=== PATIENT | female | born 1980 | race Caucasian/White ===

== ENCOUNTER → 2016-08-03 | Outpatient (CLI) | payer BC | LOC: FIMAGING 08:13 | PROVIDERS: ATTEND Obstetrics & Gynecology | DX: O09.523 Supervision of elderly multigravida, third trimester (principal); O36.63X0 Maternal care for excessive fetal growth, third trimester, not applicable or unspecified; O28.3 Abnormal ultrasonic finding on antenatal screening of mother; Z3A.29 29 weeks gestation of pregnancy ==

== ENCOUNTER 2016-10-01 02:36 | Inpatient (IN) | payer BC ==
[2016-10-01] MEDS ORDERED: OLIVE OIL 118 ML BTL MISC PRN (02:44)
[2016-10-01] MEDS ORDERED: LR 1,000 ML IV PRN (02:44)
[2016-10-01] MEDS ORDERED: OXYTOCIN/RINGERS LACTATE 1,000 ML IV PRN (02:44)
[2016-10-01] MEDS ORDERED: EPSOM SALT 454 GM TP PRN (02:44)
[2016-10-01] MEDS ORDERED: TERBUTALINE SULFATE 1 MG/ML VIAL IV PRN (02:44)
[2016-10-01] MEDS ORDERED: AMPICILLIN SODIUM 2 GM in NS 100 ML IV ONE (02:44)
[2016-10-01] MEDS ORDERED: TERBUTALINE SULFATE 1 MG/ML VIAL ONE (02:48)
[2016-10-01] MEDS ORDERED: OXYTOCIN 10 UNIT/ML VIAL ONE (02:48)
[2016-10-01] MEDS ORDERED: OLIVE OIL 118 ML BTL ONE (02:48)
[2016-10-01] MEDS ORDERED: LIDOCAINE 1% 300 MG/30 ML SDV ONE (02:48)
[2016-10-01] MEDS ORDERED: AMMONIA AROMATIC 1 EACH AMP IH ONE (02:48)
[2016-10-01] MEDS ORDERED: MISOPROSTOL 200 MCG TAB ONE (02:49)
[2016-10-01 03:10] LABS: % IMMATURE GRANULYOCYTES 0.6 % (0.0-1.1); ABSOLUTE IMMATURE GRANULOCYTES 0.09 10^3/uL (0.00-0.10); ADD DIFF? NO; ADD MORPH? NO; ADD SCAN? NO; ATYPICAL LYMPHOCYTE FLAG 10 (0-99); FRAGMENT RBC FLAG 0 (0-99); LEFT SHIFT FLG 0 (0-99); LIPEMIA HEMOLYSIS FLAG 90 (0-99); MEAN CELL HEMOGLOBIN 32.8 pg (27.9-34.1); MEAN CELL HEMOGLOBIN CONCENTR. 36.1 g/dL (32.4-36.7); MEAN CELL VOLUME 90.9 fL (81.5-99.8); MEAN PLATELET VOLUME 9.7 fL (8.7-11.7); PLATELET CLUMPS FLAG 20 (0-99); PLATELET COUNT 256 10^3/uL (150-400); RED BLOOD CELL COUNT 3.96 10^6/uL (4.18-5.33); RED CELL DISTRIBUTION WIDTH 13.3 % (11.5-15.2)
[2016-10-01] MEDS ORDERED: fentaNYL 2MCG/ML/BUP 0.1% RTU 100 ML BAG EP ONE (03:16)
[2016-10-01] MEDS ORDERED: BUPIVACAINE 0.25% 30 ML SDV ONE (03:16)
[2016-10-01] MEDS ORDERED: PHENYLEPHRINE HCL 100 MCG/ML SYR ONE (03:16)
[2016-10-01] MEDS ORDERED: fentaNYL 100 MCG/2 ML INJ ONE (03:17)
--- NOTE | 2016-10-01 04:22 | GHP ---
[f rep st] HISTORY AND PHYSICAL DATE OF ADMISSION: 10/01/2016 CHIEF COMPLAINT: Contractions. HISTORY OF PRESENT ILLNESS: The patient is a 36-year-old, 2, para 1-0-0 -1, at 38 weeks and 2 days gestational age by last menstrual period and first- trimester ultrasound. She initially started having contractions around 10:30 p.m. yesterday evening. Initially they were irregular but they became stronger, and she contacted me at 0110. I advised her to come to the hospital for evaluation for labor. The contractions become more regular, and she presented to the hospital for evaluation at 0230. She denies leaking fluid or vaginal bleeding. Her baby is active. Her has been complicated by advanced maternal age with normal cell free DNA screening and anatomy ultrasound other than an isolated echogenic focus. She has a history of depression and is on Zoloft. She has received her flu and Tdap vaccines. 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 Blood work is normal, including blood type B positive, rubella immune, RPR nonreactive, HIV negative, hepatitis B surface antigen negative, Gonorrhea and chlamydia negative, normal 1-hour Glucola screening of 91. Group B strep screening positive. PAST MEDICAL HISTORY: Depression, anxiety, migraines, oral HSV. PAST SURGICAL HISTORY: [place] tooth removal. FAMILY HISTORY: Noncontributory. MEDICATIONS: Zoloft 150 mg daily; vitamins; iron; magnesium; [place] 5/ 325, 1-2 tablets p.r.n. severe headache. ALLERGIES: None OBSTETRIC HISTORY: History of a vacuum-assisted vaginal delivery after pushing for 3 hours, in 2012; 7 pound 10 ounce baby who was born at 40 weeks 0 days. REVIEW OF SYSTEMS: Negative apart from HPI. PHYSICAL EXAMINATION: VITAL SIGNS: Blood pressure 123/83, heart rate 92, temperature 36.6. STATUS: Baseline heart rate 120 beats per minute. Moderate variability. Positive accelerations. Contractions every 2 minutes. GENERAL: Alert, awake, in moderate to severe distress with contractions, resting comfortably in between respirations, unlabored. CARDIOVASCULAR: Regular rate and rhythm. ABDOMEN: Gravid, soft, nontender. EXTREMITIES: No edema. PELVIC: Sterile vaginal exam, 9 cm dilated, vertex presentation, bulging bag of water. LABORATORIES: White blood cell 15.2, hemoglobin 13.0, hematocrit 36.0, platelets 256. ASSESSMENT AND PLAN: The patient is a 36-year-old, 2, para 1-0-0-1, here in active labor. She is group B strep positive and will be started antibiotics. She will be admitted for active labor. At this time, she is deciding between proceeding with an artificial rupture of membranes to expedite delivery after the 1st dose of antibiotics versus an epidural. Her status is reassuring at this time. We will continue monitoring. Will plan otherwise routine intrapartum and care with expectation for vaginal delivery. /[id number]/MODL MTDD
--- NOTE | 2016-10-01 04:41 | OBPROG ---
OBG Labor Progress Note Assessment/Plan: Assessment: 38w2d AROM performed Meconium ROP presentation status reassuring Plan: After AROM pt was still 0 station with ROP presentation. There was no change after 5 contractions. She at that time requested epidural which will be placed by Dr. Oliver at this time. Will plan for labor down with position changes after epidural placement. ASSISTANT DIRECTOR OF NURSING at time of delivery for mec. 10/01/16 04:39 10/01/16 04:40 10/01/16 04:41 Subjective: AROM performed at pt's request after 1st dose of abx to expedite delivery. Objective: 10/01/16 03:00 Patient ABO/Rh B POSITIVE 10/01/16 03:00 VS reviewed Gen: Moderate distress with contractions, resting comfortable in between Abd: soft, nontender After AROM (particulate mec) she was found to be 9/100/0/vtx/ROP presentation. bl 120, mod key, + accels, one decel to 90s with contractions [place]: q2 min - Procedures Non-surgical Procedures: Amniotomy ICD10 Worksheet Patient Problems: Problems Problem Status Onset Normal labor Acute - ICD10 Problem Qualifiers (1) Normal labor
[2016-10-01] MEDS ORDERED: PHENYLEPHRINE HCL 100 MCG/ML SYR IVP PRN (04:48)
[2016-10-01] MEDS ORDERED: ONDANSETRON 4 MG/2 ML VIAL IVP PRN (04:48)
--- NOTE | 2016-10-01 04:54 | PREANESOB ---
Obstetric Pre-Anesthesia Info - General Info Proposed Procedure: Labor and delivery. : 2 Para: 1 WBD: 38 - Info Status: Full Term Monitors: External FHR Baseline (bpm): 120 FHR Pattern: Reassuring - Labor Status Cervical Dilation per last OB SVE: 9 Indications for Labor Analgesia: Pain Control Labor Epidural: Proposed Anesthesia ROS: Prior labor epidural. History of migraines. Allergies/Adverse Reactions: Allergy/AdvReac Type Severity Reaction Status Date / Time No Known Allergies Allergy Verified 10/10/12 19:29 Home Medications: Medication Instructions Recorded CALCIUM CARBONATE/VITAMIN D3 1 tab PO DAILY 10/10/12 [CALCIUM + D 600 MG TABLET] Iron/Docusate Sodium 1 tab PO DAILY 10/10/12 [Daisy-Sequels] MAGNESIUM [Magnesium Oxide 200 mg] 1 tab PO DAILY 10/10/12 Vit27&Calcium/Iron/FA 1 tab PO DAILY 10/10/12 [] Visit Medications: Generic Name Dose Route Start Last Admin Trade Name Freq PRN Reason Stop Dose Admin Ampicillin Sodium 1 gm/ Sodium 100 mls @ 200 mls/hr 10/01/16 06:45 Chloride IV 10/31/16 06:44 Q4H NADIYA Protocol Lactated Ringer's 1,000 mls @ 0 mls/hr 10/01/16 02:44 Lr IV 03/30/17 02:43 PRN PRN SEE PROTOCOL CONDITIONS Protocol Per Protocol Oxytocin/Lactated Ringer's 1,000 mls @ 150 mls/hr 10/01/16 02:44 Pitocin 20 Units/Lr (Premix) IV PRN PRN Post- bleeding Ibuprofen 600 mg 10/01/16 02:44 Motrin PO 03/30/17 02:43 Q6HRS PRN post , inflammation Magnesium Sulfate 454 gm 10/01/16 02:44 Epsom Salt TP 03/30/17 02:43 PRN PRN perineal discomfort [place] Oil 118 ml 10/01/16 02:44 Sweet Oil MISC 03/30/17 02:43 ONCE PRN preneal massage Terbutaline Sulfate 0.25 mg 10/01/16 02:44 Brethine IV 03/30/17 02:43 ONCE PRN Tachysystole Discontinued Medications Generic Name Dose Route Start Last Admin Trade Name Freq PRN Reason Stop Dose Admin Ammonia (Aromatic Spirit) Confirm 10/01/16 02:48 Ammonia Aromatic Administered 10/01/16 02:49 Dose 1 each IH .STK-MED ONE Bupivacaine HCl Confirm 10/01/16 03:16 Sensorcaine 0.25% Sdv Administered 10/01/16 03:17 Dose 30 ml .ROUTE .STK-MED ONE Ephedrine Sulfate Confirm 10/01/16 02:48 Ephedrine Sulfate Administered 10/01/16 02:49 Dose 50 mg .ROUTE .STK-MED ONE Fentanyl Confirm 10/01/16 03:17 Sublimaze Administered 10/01/16 03:18 Dose 100 mcg .ROUTE .STK-MED ONE Fentanyl/Bupivacaine HCl Confirm 10/01/16 03:16 Fentanyl/Bupivacaine/Ns 2 Mcg/Ml 0.1% (Premix Administered 10/01/16 03:17 Dose 100 ml EP .STK-MED ONE Ampicillin Sodium 2 gm/ Sodium 110 mls @ 220 mls/hr 10/01/16 02:44 Chloride IV 10/01/16 03:13 ONCE ONE Protocol Lidocaine HCl Confirm 10/01/16 02:48 Lidocaine Hcl 1% Administered 10/01/16 02:49 Dose 300 mg .ROUTE .STK-MED ONE Misoprostol Confirm 10/01/16 02:49 Cytotec Administered 10/01/16 02:50 Dose 800 mcg .ROUTE .STK-MED ONE [place] Oil Confirm 10/01/16 02:48 Sweet Oil Administered 10/01/16 02:49 Dose 118 ml .ROUTE .STK-MED ONE Oxytocin Confirm 10/01/16 02:48 Pitocin Administered 10/01/16 02:49 Dose 40 unit .ROUTE .STK-MED ONE Phenylephrine HCl Confirm 10/01/16 03:16 Neosynephrine Administered 10/01/16 03:17 Dose 1,000 mcg .ROUTE .STK-MED ONE Terbutaline Sulfate Confirm 10/01/16 02:48 Brethine Administered 10/01/16 02:49 Dose 1 mg .ROUTE .STK-MED ONE - Anesthesia History Response to Local Anesthetics: Normal Anesthesia & Operative History: No Prior Problems Family Anesthesia History: Negative - Social History Substance Use/Abuse: Denies - Focused Exam Blood Pressure: 123/83 Heart Rate: 92 Respiratory Rate: 20 Physical Exam: Within normal limits except for severe labor pain. ASA Status: II Labs: 10/01/16 03:00 Patient ABO/Rh B POSITIVE 10/01/16 03:00 - Plan Anesthetic Plan: CSE Consent Signed and on Chart: Yes Patient/Guardian Understands and Agrees to Plan: Yes General Comments: Written consent signed and pre anesthesia note after CSE due to severe labo
--- NOTE | 2016-10-01 04:59 | POSTANESTH ---
Post Anesthetic Evaluation Cardiovascular Status: Normal, Stable Respiratory Status: Normal, Stable, Similar to Pre-op Cond. Level of Consciousness/Mental Status: Can Participate in Eval, Alert and Oriented (Tolerated CSE well, stable, comfortable.) Pain Control: Adequate, Prn Tx Ordered Nausea/Vomiting Control: Adequate, Prn Tx Ordered Complications Possibly Related to Anesthesia: None Noted
[2016-10-01] MEDS ORDERED: fentaNYL 2MCG/ML/BUP 0.1% RTU 100 ML EP SCH (05:00)
[2016-10-01] MEDS ORDERED: LR 500 ML IV SCH ×2 (05:00)
[2016-10-01 06:13] LABS: BASE EXCESS CORD -5.1 mEq/L (-13.6--3.2); PH ARTERIAL CORD BLOOD 7.34 (7.10-7.37)
[2016-10-01 06:17] LABS: PH VENOUS CORD BLOOD 7.3 (7.20-7.42)
[2016-10-01] MEDS ORDERED: METHYLERGONOVINE MAL 0.2 MG/ML INJ ONE (06:24)
[2016-10-01] MEDS ORDERED: AMPICILLIN SODIUM 1 GM in NS 100 ML IV SCH (06:45)
--- NOTE | 2016-10-01 06:54 | OBDEL ---
Info Type: Vaginal GBS+: Yes Antibiotic Used for + GBS: Ampicillin Number of Antibiotic Doses Given: 1 Indications for Delivery: Spontaneous Labor Vaginal Delivery - Labor and Delivery Onset of Contractions Date: 10/01/16 Onset of Contractions Time: 01:30 Onset of Contractions Type: Spontaneous Rupture of Membranes Date: 10/01/16 Rupture of Membranes Time: 03:30 Rupture of Membranes Type: Artificial Amniotic Fluid Color: Meconium Stained Dilation Complete Date: 10/01/16 Dilation Complete Time: 05:15 Placenta Delivery Date: 10/01/16 Placenta Delivery Time: 06:00 Total Hours of Labor: 4 Non-surgical Procedures: Amniotomy Laceration: 2nd Degree Repair: 3-0 Vaginal Sponge Count Correct: Yes Delivery Events: Post Hemorrhage (atony) Delivery Comment: Pt found to be complete and 1+ station. We began pushing at 0540. ORTHO RN was called at time of pushing for known meconium. She pushed with excellent effort and good movement of fetus was noted. At the onset of pushing baby had a prolonged decel to the 70s. Prior to this the tracing had been reassuring with moderate variability and spontaneous accelerations. Position changes, O2, and fluids were implemented. We had the patient push again, again with excellent effort and movement. After this push (5 minutes into decel) the heart rate came back up to to 110. I advised the patient that if the baby was not delivered within the next 1-2 pushes I would recommend a vacuum delivery for heart rate decelerations. She agreed with plan. She pushed 2 additional times and quickly delivered in BRIANDA presentation. A tight nuchal cord was reduced at the perineum, and remainder of the body was easily delivered without dystocia. An additional body cord was noted which was also reduced. The was placed on the maternal abdomen. After 30 seconds the cord was clamped and cut so the could be brought to the warmer for further resuscitation. Cord gas was obtained. IV pitocin 20 units was started. The placenta was removed with fundal massage and gentle cord traction. What appeared to be a small lobe of placenta was missing, and a bimanual massage was performed and this detached lobe of placenta was completely removed. There was not evidence of further retained products on exam. A small 2nd degree laceration was repaired in the usual fashion with 3-0 vicryl. No other lacerations were noted. The patient had some ongoing gushing of blood and a bimanual was performed, demonstrating a boggy VONDA. PO cytotec 600 mcg was given, and the US was called for. An US demonstrated no e/o retained products and a thin uterine stripe. Another bimanual massage was performed, and ongoing bogginess was noted. IM methergine 0.2mg was given. After this the tone improved and bleeding was appropriate. Patient in good condition. Counts correct. Total EBL 550 ml. APGARS pending. Cord Gases: Cord Gases Cord Blood PCO2 37.0 mmHg (37-60) 10/01/16 06:00 Cord Base Excess -5.1 mEq/L (-13.6--3.2) 10/01/16 06:00 Cord ABG pH 7.34 (7.10-7.37) 10/01/16 06:00 Cord VBG pH 7.30 (7.20-7.42) 10/01/16 06:00 Operative Report - Delivery Cord Gases: Cord Gases Cord Blood PCO2 37.0 mmHg (37-60) 10/01/16 06:00 Cord Base Excess -5.1 mEq/L (-13.6--3.2) 10/01/16 06:00 Cord ABG pH 7.34 (7.10-7.37) 10/01/16 06:00 Cord VBG pH 7.30 (7.20-7.42) 10/01/16 06:00 Data Baez Delivery Date: 10/01/16 Delivery Time: 05:51 LIN: 10/13/16 Gestational Age: 38 week(s) and 2 day(s) Sex of : Male ICD10 Worksheet Patient Problems: Problems Problem Status Onset hemorrhage Acute Vaginal delivery Acute - ICD10 Problem Qualifiers (1) Normal labor (2) Vaginal delivery (3) hemorrhage Qualifiers: hemorrhage type: P
[2016-10-01] MEDS ORDERED: HYDROCORTISONE 0.5% CREAM TP PRN (06:57)
[2016-10-01] MEDS ORDERED: SIMETHICONE 80 MG TAB CHEW PO PRN (06:57)
[2016-10-01] MEDS ORDERED: ACETAMINOPHEN 325 MG TAB PO PRN (06:57)
[2016-10-01] MEDS ORDERED: OXYTOCIN/RINGERS LACTATE 1,000 ML IV SCH (07:00)
[2016-10-01] MEDS: IBUPROFEN 600 MG TAB PO PRN ×2 (12:17→19:09)
[2016-10-01] MEDS: HYDROCODONE/APAP 5/325 TAB PO PRN ×2 (12:18→22:01)
[2016-10-01 22:16] VITALS: RESP 16
[2016-10-02] MEDS: IBUPROFEN 600 MG TAB PO PRN ×4 (06:10→22:55)
[2016-10-02] MEDS: DOCUSATE SODIUM 100 MG CAP PO PRN ×2 (12:00→20:25)
--- NOTE | 2016-10-02 12:05 | OBPP ---
Progress Note Assessment/Plan: Assessment: 36 y/o female PPD#1 s/p - doing well Plan: Continue routine PP care RH+, RI Baby improving in the nursery. Plan discharge home tomorrow. 10/02/16 12:05 Subjective: Pt feeling well, mild LESLIE consistent with her prior mild LESLIE's, no other concerns. Lochia diminishing, breast pumping progressing. Baby improving in the nursery, weaning off O2. Objective: 10/02/16 06:00 Patient ABO/Rh B POSITIVE 10/01/16 03:00 Temp Pulse Resp BP Pulse Ox 36.8 C 88 16 105/67 96 10/02/16 11:00 10/02/16 11:00 10/02/16 11:00 10/02/16 11:00 10/02/16 11:00 Uterine Position/Fundal Height: Umbilicus -2 Uterine Tone: Firm
[2016-10-02] MEDS: HYDROCODONE/APAP 5/325 TAB PO PRN ×2 (20:25→22:54)
[2016-10-02 20:56] VITALS: TEMP 98.3; O2SAT 99
[2016-10-03] MEDS: DOCUSATE SODIUM 100 MG CAP PO PRN (11:29)
[2016-10-03] MEDS: IBUPROFEN 600 MG TAB PO PRN (11:29)
[2016-10-03 11:38] VITALS: BP 97/62; PULSE 95
--- NOTE | 2016-10-03 11:54 | OBPP ---
Progress Note Assessment/Plan: Assessment: 36 y/o female PPD#2 s/p - doing well Plan: Discharge home (or to [facility] status if baby is not discharged) RH+, RI RX for motrin given F/U in 4 weeks w/ our therapist and in 6 weeks with OB provider 10/03/16 11:53 Subjective: Pt has no complaints, ambulating, voiding, lochia diminishing, pain well controlled and breast feeding progressing Objective: 10/02/16 06:00 Patient ABO/Rh B POSITIVE 10/01/16 03:00 Temp Pulse Resp BP Pulse Ox 36.8 C 95 16 97/62 L 99 10/03/16 08:00 10/03/16 08:00 10/02/16 20:45 10/03/16 08:00 10/02/16 20:45 Uterine Position/Fundal Height: Umbilicus -1 Uterine Tone: Firm
--- NOTE | 2016-10-03 11:58 | OBGCSDC ---
General Delivery Information - General Info : 2 Para: 2 Delivery Physician/CNM: Aura Rodriguez Admission Date: 10/01/16 Labs: Patient ABO/Rh B POSITIVE 10/01/16 03:00 Hct 31.7 % (38.0-47.0) L 10/02/16 06:00 Vaginal - Diagnosis Labor: Spontaneous Rupture of Membranes Type: Artificial Amniotic Fluid Color: Meconium Stained Laceration: 2nd Degree Repair: 3-0 Delivery Events: Post Hemorrhage (atony) - Operations/Procedures Non-surgical Procedures: Amniotomy L&D Analgesia/Anesthesia Type: Epidural - Hospital Course Antepartum: Hx migraines, oral HSV, depression; low lying placenta --> resolved, EIF on anatomy with normal genetic screening Intrapartum: +Meconium stained fluid, : Uncomplicated, s/p flu and tdap vaccines, baby improving in nursery. - Delivery Non-surgical Procedures: Amniotomy L&D Analgesia/Anesthesia Type: Epidural Data Baez Delivery Date: 10/01/16 Delivery Time: 05:51 LIN: 10/13/16 Gestational Age: 38 week(s) and 4 day(s) Sex of Infant: Male [place] Weight (gm): 3126 g Score (1 Min): 8 Score (5 Min): 8 Discharge Information - Discharge Information Discharge Medications: Ibuprofen, Vitamins Condition: Good Instruction/Follow Up: Six Weeks Discharge Physician/CNM: Elo Whatley
== END 2016-10-03 14:05 | disposition home or self-care (01) | DRG 775 ==
LOC: OBSVTOIN 02:36 → FLD 02:36 → FOB 08:44
PROVIDERS: ADMIT Obstetrics & Gynecology; ATTEND Obstetrics & Gynecology
DX: O70.1 Second degree perineal laceration during delivery (principal); O32.8XX0 Maternal care for other malpresentation of fetus, not applicable or unspecified; O99.820 Streptococcus B carrier state complicating pregnancy; Z3A.38 38 weeks gestation of pregnancy; Z37.0 Single live birth
CPT/HCPCS: J2210; J2370; J2590; J3010; J3105